=== PATIENT | female | born 1965 | race Hispanic/Latino ===

== ENCOUNTER → 2017-08-04 | Outpatient (CLI) | payer OTHER ==
--- NOTE | 2017-08-05 13:52 | MAM ---
EXAM DESCRIPTION: 3D Screening BILATERAL CLINICAL HISTORY: 51 yearsFemaleSCREENING . No complaints. No family history of breast cancer. Postmenopausal five months. No HRT. COMPARISON: 2-D digital screening bilateral study 04/16/2016. No prior reports available. TECHNIQUE: Bilateral CC and MLO projection full-field images, 3-D tomosynthesis digital mammographic technique. Also bilateral synthesized CC/ MLO full-field images. CAD not utilized. FINDINGS: The breast parenchymal density pattern is: Heterogeneously dense breast tissue, which may obscure small masses. No skin thickening or nipple retraction bilateral solitary microcalcifications and coarse calcification in the left breast. No focal, stellate mass or density, focal asymmetry , and no suspicious microcalcifications bilaterally. Stable mammograms compared to prior study, taking into account differences in mammographic technique IMPRESSION: BI-RADS CATEGORY: 2 - BENIGN FINDINGS. FOLLOW UP: Routine digital bilateral screening, one year interval from August 2017. Written communication explaining the IMPRESSION and follow-up, will be mailed to the patient and referring health care provider. According to the [employer], yearly mammograms are recommended starting at age 40 and continuing as long as a woman is in good health. Any breast change noted on a breast self-exam should be reported promptly to the patient's healthcare provider. Breast MRI is recommended for women with an approximately 20-25% or greater lifetime risk of breast cancer, including women with a strong family history of breast or ovarian cancer and women who have been treated for Hodgkin's disease. A negative mammographic report should not delay tissue diagnosis in patients with significant clinical history or physical findings. Extremely dense breast tissue limits the sensitivity of digital mammography. Electronically signed by: Ish Landon MD 08/05/2017 1:51 PM CDT
== END | disposition home or self-care (01) ==
LOC: MAMMO 17:08
PROVIDERS: ATTEND Family Medicine
DX: Z12.31 Encounter for screening mammogram for malignant neoplasm of breast (principal)
CPT/HCPCS: 77063; G0202

== ENCOUNTER → 2017-09-21 | Outpatient (CLI) | payer OTHER | END | disposition home or self-care (01) | LOC: GMAB 16:45 | PROVIDERS: ATTEND Family Medicine | DX: M25.551 Pain in right hip (principal) ==

== ENCOUNTER 2017-12-11 16:11 | Emergency (ER) | payer OTHER ==
[2017-12-11 16:39] VITALS: BP 119/78; TEMP 98.3; O2SAT 100
--- NOTE | 2017-12-11 17:02 | ED.PDOC ---
History of Present Illness - General Chief Complaint: Lower Extremity Injury Stated Complaint: knee pain Time Seen by Provider: 12/11/17 16:59 Source: patient, RN notes reviewed - History of Present Illness Occurred: last week Pain - Lower Extremity: moderate: Left Knee - fell from standing position on 4 days ago at work Method of Injury: fell Improving Factors: nothing Worsening Factors: movement Allergies/Adverse Reactions: Allergies NO KNOWN ALLERGY Allergy (Verified 11/15/15 16:44) Home Medications: Ambulatory Orders Aspirin [Aspirin 81] 81 mg PO DAILY #0 09/06/13 Clopidogrel Bisulfate [Plavix] 75 mg PO DAILY #0 09/06/13 Propranolol HCl 10 mg PO HS #0 09/06/13 Simvastatin [Zocor] 20 mg PO HS #0 09/06/13 Review of Systems - Review of Systems Constitutional: States: no symptoms reported EENTM: States: no symptoms reported Respiratory: States: no symptoms reported Cardiology: States: no symptoms reported Gastrointestinal/Abdominal: States: no symptoms reported Genitourinary: States: no symptoms reported Musculoskeletal: States: see HPI Skin: States: no symptoms reported Endocrine: States: no symptoms reported Hematologic/Lymphatic: States: no symptoms reported Past Medical History (General) - Patient Medical History Hx Seizures: No Hx Stroke: Yes - TIA's Hx Asthma: No Hx of COPD: No Hx Cardiac Disorders: Yes - hypercholesterolemia Hx Congestive Heart Failure: No Hx Pacemaker: No Hx Hypertension: Yes Hx Diabetes: No Hx MRSA: No - Vaccination History Hx Influenza Vaccination: Yes - Social History Hx Tobacco Use: No Hx Alcohol Use: No Hx Substance Use: No Hx Physical Abuse: No Hx Emotional Abuse: No - Female History Patient is a Female of Child Bearing Age (10 -59 yrs old): Yes Hx Last Menstrual Period: 08/21/12 Family Medical History - Family History Father Living Status: Hx Family Diabetes: Yes Physical Exam - Physical Exam General Appearance: Alert Eyes, Ears, Nose, Throat: PERRL/EOMI, normal ENT inspection, TMs normal, scleral icterus (R) Neck: non-tender, full range of motion, supple Cardiovascular/Respiratory: regular rate, rhythm, no M/R/G, normal peripheral pulses Gastrointestinal/Abdominal: non-tender, no organomegaly, no hernia Back: normal inspection, no CVA tenderness, no vertebral tenderness Thigh/Hip: normal inspection, non-tender, no evidence of injury Knee: normal ROM - LEFT KNEE MILD SWELLING NOTED NO DEFORMITY NO DISCOLORATION NO JOINT INSTABILITY, pain, swelling Departure - Departure Clinical Impression: Contusion Time of Disposition: 17:06 Disposition: Discharge to Home or Self Care Condition: Good Departure Forms: ED Discharge - Pt. Copy, Patient Portal Self Enrollment Diet: resume usual diet Referrals: Ray Matos MD [Primary Care Provider] - 1-2 Weeks Home Medications: Ambulatory Orders Aspirin [Aspirin 81] 81 mg PO DAILY #0 09/06/13 Clopidogrel Bisulfate [Plavix] 75 mg PO DAILY #0 09/06/13 Propranolol HCl 10 mg PO HS #0 09/06/13 Simvastatin [Zocor] 20 mg PO HS #0 09/06/13
--- NOTE | 2017-12-11 17:16 | RAD ---
EXAM DESCRIPTION: Knee, left 2 or More Views CLINICAL HISTORY: 51 years Female pain after fall COMPARISON: None. TECHNIQUE: Three views of the left knee. FINDINGS: No acute fractures or dislocations are identified. No osseous destructive lesions. IMPRESSION: No acute fracture is identified. Electronically signed by: Santi Nino MD 12/11/2017 5:15 PM [facility]
== END 2017-12-11 17:11 | disposition home or self-care (01) ==
LOC: ER 16:11
DX: S80.02XA Contusion of left knee, initial encounter (principal); E78.00 Pure hypercholesterolemia, unspecified; I10 Essential (primary) hypertension; Z86.73 Personal history of transient ischemic attack (TIA), and cerebral infarction without residual deficits; W19.XXXA Unspecified fall, initial encounter; Y92.89 Other specified places as the place of occurrence of the external cause; Y99.0 Civilian activity done for income or pay; Z79.82 Long term (current) use of aspirin; Z79.02 Long term (current) use of antithrombotics/antiplatelets

== ENCOUNTER → 2018-08-23 | Outpatient (CLI) | payer OTHER ==
--- NOTE | 2018-08-24 11:10 | MAM ---
EXAM DESCRIPTION: 3D Screening BILATERAL : Digital Mammography. CLINICAL HISTORY: 52 years Female SCREENING . No complaints. No personal or family history of breast cancer. Childbirth. Postmenopausal. No HRT. Prior benign right breast biopsy. Lifetime risk of developing breast cancer (Tyrer-Cuzick model)(%): Not calculated 8.7. COMPARISON: Bilateral screening digital breast tomosynthesis 08/04/2017. TECHNIQUE: Bilateral CC and MLO projection full-field images, Digital tomosynthesis mammographic technique. Bilateral digital 2-D full-field MLO images. CAD not utilized. FINDINGS: The breast parenchymal density pattern is: Heterogeneously dense breast tissue, which may obscure small masses. No skin thickening or nipple retraction. Solitary bilateral microcalcifications. No new focal, stellate mass or density, focal asymmetry , and no suspicious microcalcifications bilaterally. Stable mammograms compared to prior study. IMPRESSION: Benign exam. BIRAD CATEGORY: 2 BENIGN FINDINGS. RECOMMENDATIONS: FOLLOW UP: Routine digital bilateral screening, one year interval from August 2018. Written communication explaining the IMPRESSION and follow-up, will be mailed to the patient and referring health care provider. According to the [employer], yearly mammograms are recommended starting at age 40 and continuing as long as a woman is in good health. Any breast change noted on a breast self-exam should be reported promptly to the patient's healthcare provider. Breast MRI is recommended for women with an approximately 20-25% or greater lifetime risk of breast cancer, including women with a strong family history of breast or ovarian cancer and women who have been treated for Hodgkin's disease. A negative mammographic report should not delay tissue diagnosis in patients with significant clinical history or physical findings. Extremely dense breast tissue limits the sensitivity of digital mammography. Electronically signed by: Ish Landon MD 08/24/2018 11:09 AM CDT
== END ==
LOC: MAMMO 13:00
PROVIDERS: ATTEND Family Medicine
DX: Z12.31 Encounter for screening mammogram for malignant neoplasm of breast (principal)

== ENCOUNTER → 2018-09-13 | Outpatient (CLI) | payer OTHER ==
--- NOTE | 2018-09-14 08:46 | US ---
THYROID ULTRASOUND CLINICAL INFORMATION: Thyroid nodule TECHNIQUE: Sonogram of the thyroid gland was performed. COMPARISON: None FINDINGS: Thyroid size: Right thyroid lobe measures 4.4 x 1.5 x 1.7 cm. The left thyroid lobe measures 4.5 x 1.7 x 1.8 cm. Thyroid isthmus measures 5 mm in thickness. Texture: Coarse texture with hypoechoic thyroid parenchyma suggesting chronic Cameron's thyroiditis. Estimated total number of nodules >/=1 cm: 0 Right No nodule is identified in the right thyroid lobe. Coarse texture is seen suggesting chronic autoimmune disease (chronic stage of Cameron's thyroiditis). Left A small nodule is seen in the central left thyroid lobe which is hypoechoic and measures 5 mm in diameter. Low level internal echoes are present consistent with hypoechoic solid lesion or debris-filled cyst. Posterior back wall is fairly sharply defined. Increased through-transmission is not evident however. No internal microcalcifications. At this small size, follow-up is not recommended. IMPRESSION: Coarse texture of the thyroid gland with findings suggesting Cameron's thyroiditis. Small 5 mm lesion in the left thyroid lobe appears benign. Electronically signed by: Gallito Verduzco MD 09/14/2018 8:44 AM [employer]
== END ==
LOC: US 15:13
PROVIDERS: ATTEND Family Medicine
DX: E04.1 Nontoxic single thyroid nodule (principal)

== ENCOUNTER → 2018-11-22 | Outpatient (CLI) | payer OTHER | LOC: GMAE 10:51 | PROVIDERS: ATTEND Family Medicine | DX: R94.6 Abnormal results of thyroid function studies (principal) ==

== ENCOUNTER 2019-08-23 15:58 | Emergency (ER) | payer OTHER ==
[2019-08-23 16:15] VITALS: BP 161/76
--- NOTE | 2019-08-23 16:17 | ED.PDOC ---
History of Present Illness - General Chief Complaint: Upper Extremity Injury Stated Complaint: RH injury Time Seen by Provider: 08/23/19 16:12 - History of Present Illness Initial Comments: 53 yo F PMH HTN HL Stroke on blood thinner (does not know name) pt. of Dr. Hyatt presents to ED daughter at bedside c/o crush injury to right hand 40 minutes ago. Pt. 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 No change in diet rest bowel or bladder. Denies drinking or smoking admits FH HTN DM. No other c/o today. Allergies/Adverse Reactions: Allergies NO KNOWN ALLERGY Allergy (Verified 11/15/15 16:44) Home Medications: Ambulatory Orders Aspirin [Aspirin 81] 81 mg PO DAILY #0 09/06/13 Clopidogrel Bisulfate [Plavix] 75 mg PO DAILY #0 09/06/13 Propranolol HCl 10 mg PO HS #0 09/06/13 Simvastatin [Zocor] 20 mg PO HS #0 09/06/13 Acetaminophen [Tylenol] 650 mg PO Q6H PRN #30 tab 08/23/19 Review of Systems - Review of Systems Constitutional: States: see HPI EENTM: States: see HPI Respiratory: States: see HPI Cardiology: States: see HPI Gastrointestinal/Abdominal: States: see HPI Genitourinary: States: see HPI Musculoskeletal: States: see HPI Skin: States: see HPI Neurological: States: see HPI Endocrine: States: see HPI Hematologic/Lymphatic: States: see HPI All other Systems: Reviewed and Negative Past Medical History (General) - Patient Medical History Hx Seizures: No Hx Stroke: Yes - TIA's Hx Asthma: No Hx of COPD: No Hx Cardiac Disorders: Yes - hypercholesterolemia Hx Congestive Heart Failure: No Hx Pacemaker: No Hx Hypertension: Yes Hx Diabetes: No Hx MRSA: No - Vaccination History Hx Influenza Vaccination: Yes - Social History Hx Tobacco Use: No Hx Alcohol Use: No Hx Substance Use: No Hx Physical Abuse: No Hx Emotional Abuse: No - Female History Hx Last Menstrual Period: 08/21/12 Family Medical History - Family History Father Living Status: Hx Family Diabetes: Yes Physical Exam - Physical Exam General Appearance: No apparent distress Eyes, Ears, Nose, Throat Exam: normal ENT inspection Neck: full range of motion Cardiovascular/Respiratory: regular rate, rhythm Abdominal Exam: non-tender Back Exam: normal inspection Shoulder Exam: normal inspection Elbow/Forearm Exam: normal inspection Wrist Exam: normal inspection Hand Exam: swelling Neuro/Tendon: normal sensation, normal motor functions Mental Status: oriented x 3 Skin Exam: other - ecchymosis Progress - Progress Progress: 08/23/19 16:24 A/P-Hand Contusion, Abrasion-tylenol tetanus xr hand xr wrist both right if negative d/c tylenol fabiola tape follow up pcp 08/23/19 17:54 EXAM DESCRIPTION: Hand,Right 3 Views CLINICAL HISTORY: contusion COMPARISON: None Available. TECHNIQUE: AP, LATERAL, AND OBLIQUE FINDINGS: The visualized bones appear poorly mineralized. No acute fracture or dislocation. The soft tissues appear grossly unremarkable. Changes of amputation of the distal phalanx of the first digit. Mild degenerative changes are identified in the interphalangeal joints. IMPRESSION: Changes of amputation of the distal phalanx of the first digit. Mild degenerative changes are identified in the interphalangeal joints. Electronically signed by: Humberto Mead MD 08/23/2019 4:33 PM CDT EXAM DESCRIPTION: Wrist,Right 3 Views CLINICAL HISTORY: 53 years Female, contusion COMPARISON: None available. FINDINGS: The visualized bones are well- mineralized.No acute fracture or dislocation. The soft tissues appear grossly unremarkable. IMPRESSION: No acute radiographic abnormality is noted in the r ight wrist. Electronically signed by: Humberto Mead MD 08/23/2019 4:33 PM CDT Departure - Departure Clinical Impression: Hand pain, right Contusion of hand, right Qualifiers: Encounter type: initial encounter Qualified Code(s): S60.221A - Contusion of right hand, initial encounter Disposition: Discharge to Home or Self Care Condition: Good Departure Forms: ED Discharge - Pt. Copy, Patient Portal Self Enrollment Instructions: DI for Hand Injury Referrals: JACKY HYATT MD [Primary Care Provider] - 1-2 Weeks Prescriptions: Acetaminophen [Tylenol] 650 mg PO Q6H PRN #30 tab PRN Reason: Pain Home Medications: Ambulatory Orders Aspirin [Aspirin 81] 81 mg PO DAILY #0 09/06/13 Clopidogrel Bisulfate [Plavix] 75 mg PO DAILY #0 09/06/13 Propranolol HCl 10 mg PO HS #0 09/06/13 Simvastatin [Zocor] 20 mg PO HS #0 09/06/13 Acetaminophen [Tylenol] 650 mg PO Q6H PRN #30 tab 08/23/19
[2019-08-23] MEDS: ACETAMINOPHEN 500 MG TAB PO ONE (16:21)
[2019-08-23] MEDS: TETANUS,DIPHTHERIA,PERTUSSIS 1 EA SYG IM ONE (16:32)
--- NOTE | 2019-08-23 16:35 | RAD ---
EXAM DESCRIPTION: Hand,Right 3 Views CLINICAL HISTORY: contusion COMPARISON: None Available. TECHNIQUE: AP, LATERAL, AND OBLIQUE FINDINGS: The visualized bones appear poorly mineralized. No acute fracture or dislocation. The soft tissues appear grossly unremarkable. Changes of amputation of the distal phalanx of the first digit. Mild degenerative changes are identified in the interphalangeal joints. IMPRESSION: Changes of amputation of the distal phalanx of the first digit. Mild degenerative changes are identified in the interphalangeal joints. Electronically signed by: Humberto Mead MD 08/23/2019 4:33 PM CDT
--- NOTE | 2019-08-23 16:35 | RAD ---
EXAM DESCRIPTION: Wrist,Right 3 Views CLINICAL HISTORY: 53 years Female, contusion COMPARISON: None available. FINDINGS: The visualized bones are well-mineralized.No acute fracture or dislocation. The soft tissues appear grossly unremarkable. IMPRESSION: No acute radiographic abnormality is noted in the right wrist. Electronically signed by: Humberto Mead MD 08/23/2019 4:33 PM CDT
[2019-08-23] MEDS ORDERED: NEOMYCIN-BACITRACIN-POLYMYXIN 0.9 GM UD TOP ONE (18:06)
[2019-08-23 18:30] VITALS: TEMP 97.6; O2SAT 97
== END 2019-08-23 18:30 | disposition home or self-care (01) ==
LOC: ER 15:58
DX: S60.221A Contusion of right hand, initial encounter (principal); E78.00 Pure hypercholesterolemia, unspecified; I10 Essential (primary) hypertension; Z23 Encounter for immunization; Z89.011 Acquired absence of right thumb; Z85.828 Personal history of other malignant neoplasm of skin; Z86.73 Personal history of transient ischemic attack (TIA), and cerebral infarction without residual deficits; Z79.02 Long term (current) use of antithrombotics/antiplatelets; Z79.899 Other long term (current) drug therapy; W23.0XXA Caught, crushed, jammed, or pinched between moving objects, initial encounter; Y92.219 Unspecified school as the place of occurrence of the external cause

== ENCOUNTER → 2019-08-29 | Outpatient (CLI) | payer OTHER ==
--- NOTE | 2019-08-29 20:02 | MRI ---
EXAM DESCRIPTION: Lumbar Spine w/o Contrast : Magnetic Resonance Imaging. CLINICAL HISTORY: RADICULOPATHY LUMBAR REGION COMPARISON: None. TECHNIQUE: Multiplanar, multiple standard sequences, non contrast MRI, lumbar spine. FINDINGS: L5-S1: The disc is well visualized on axial T2 series 501, image 3. Hyperintense T2-weighted annular fissure in the posterior lateral right disc margin narrowing the base of the right foramen. No other disc bulging. No nerve impingement. Canal and foramina are patent. Posterior elements are unremarkable. L4-L5: Disc is normal with disc space. Posterior thickening of the flavum ligaments narrowing the transverse diameter of the canal. Bilateral foramina are patent. L3-L4: Disc desiccation and minimal disc space loss. No significant bulging. Thickening of the posterior ligaments and bony narrowing of the transverse diameter of the canal but no canal stenosis. Bilateral neural foramina are patent. L2-L3: disc with minimal desiccation minimal anterior bulging. Narrowing of the posterior transverse canal but no stenosis. Bilateral foramina are patent. L1-L2: Normal signal in the disc and disc space preserved. Posterior elements unremarkable. Canal and foramina are patent. Perineural cyst in the right foramen. T12-L1: Same as L1-L2. Conus terminates at the L1-L2 disc space. Minimal levoscoliosis. Paravertebral soft tissues unremarkable.. Distal cord normal signal and caliber. Normal marrow signal in the remaining vertebral bodies and the posterior elements. Vertebral bodies are not compressed at any level. IMPRESSION: 1. Narrowing of the interlaminar distance at multiple levels also with thickening of the posterior flavum ligaments. No canal stenosis. Some discs are desiccated with no significant bulging. No significant hypertrophic arthrosis. No neural foraminal stenosis. 2. Right posterior L5-S1 disc with annular fissure and minimal narrowing of the base of the right foramen but no stenosis. Electronically signed by: Ish Landon MD 08/29/2019 8:00 PM CDT
== END ==
LOC: MRI 10:50
PROVIDERS: ATTEND Psychiatry & Neurology Neurology
DX: M51.17 Intervertebral disc disorders with radiculopathy, lumbosacral region (principal); M51.16 Intervertebral disc disorders with radiculopathy, lumbar region

== ENCOUNTER → 2019-08-31 | Outpatient (CLI) | payer OTHER ==
--- NOTE | 2019-09-02 16:32 | MAM ---
EXAM DESCRIPTION: 3D Screening BILATERAL : Digital Mammography. CLINICAL HISTORY: 53 years Female ANNUAL SCREENING . No complaints. No personal or family history of breast cancer. Menarche age 14. Childbirth. Premenopausal. No HRT. Prior benign right breast biopsy.. Lifetime risk of developing breast cancer (Tyrer-Cuzick model)(%): 10.2. COMPARISON: Bilateral screening digital breast tomosynthesis 23 August 2018 and 04 August 2017.. No prior reports available. TECHNIQUE: Bilateral CC and MLO projection full-field images, digital tomosynthesis mammographic technique. Bilateral digital 2-D full-field MLO images. CAD not available for tomosynthesis or 2-D images. FINDINGS: The breast parenchymal density pattern is: Heterogeneously dense breast tissue, which may obscure small masses. No skin thickening or nipple retraction. Bilateral solitary microcalcifications. Coarse calcification mid upper left breast. No new focal, stellate mass or density, focal asymmetry , and no suspicious microcalcifications bilaterally. Stable mammograms compared to prior study. IMPRESSION: Benign exam. BIRAD CATEGORY: 2 BENIGN FINDINGS. RECOMMENDATIONS: FOLLOW UP: Routine digital bilateral mammographic screening, one year interval from August 2019. Written communication explaining the IMPRESSION and follow-up, will be mailed to the patient and referring health care provider. According to the [employer], yearly mammograms are recommended starting at age 40 and continuing as long as a woman is in good health. Any breast change noted on a breast self-exam should be reported promptly to the patient's healthcare provider. Breast MRI is recommended for women with an approximately 20-25% or greater lifetime risk of breast cancer, including women with a strong family history of breast or ovarian cancer and women who have been treated for Hodgkin's disease. A negative mammographic report should not delay tissue diagnosis in patients with significant clinical history or physical findings. Extremely dense breast tissue limits the sensitivity of digital mammography. Electronically signed by: Ish Landon MD 09/02/2019 4:30 PM CDT
== END ==
LOC: MAMMO 13:38
PROVIDERS: ATTEND Family Medicine
DX: Z12.31 Encounter for screening mammogram for malignant neoplasm of breast (principal)

== ENCOUNTER → 2019-09-20 | Outpatient (CLI) | payer OTHER ==
--- NOTE | 2019-09-21 14:28 | US ---
US HEAD NECK SOFT TISSUE CLINICAL STATEMENT: HYPOTHYROIDISM. COMPARISON: Ultrasound thyroid 13 September 2018. TECHNIQUE: Transcutaneous scanning, grayscale and Doppler modes. FINDINGS: Size right thyroid lobe: 4.1 x 1.7 x 1.5 cm Size left thyroid lobe: 4.0 x 1.6 x 2.0 cm Size isthmus: 0.76 cm Estimated total number of nodules greater than or equal to 1 cm: None. No nodules are seen bilaterally. No dominant solid masses or distinct cyst. No large calcifications. Bilateral lobes and the isthmus are heterogeneous. The nodule seen in the central left thyroid lobe on the prior study is no longer visualized. The soft tissue around the thyroid gland is unremarkable. IMPRESSION: 1. Normal size of the gland with bilateral heterogeneous echoes. No nodules or distinct cyst. Nodule seen on previous study no longer visualized. No Dominant solid masses, calcifications, or overlying skin changes. 2. Soft tissue around the thyroid gland is unremarkable. *ACR TI-RADS 2017 Recommendations for imaging follow-up of nodules: TR1: No FNA or follow up TR2: No FNA or follow up TR3: FNA if >/= 2.5 cm, follow up if 1.5 - 2.4 cm in 1, 3, and 5 years TR4: FNA if >/= 1.5 cm, follow up if 1.0 - 1.4 cm in 1, 2, 3, and 5 years TR5: FNA if >/= 1.0 cm, follow up if 0.5 - 0.9 cm every year for 5 years ACR TI-RADS recommends that no more than two nodules with the highest ACR TI-RADS total point should be biopsied and no more than four nodules should be followed. These recommendations do not apply to patients with increased risk for thyroid cancer or patients with symptomatic thyroid disease. Electronically signed by: Ish Landon MD 09/21/2019 2:26 PM [employer]
== END ==
LOC: RAD 14:52
PROVIDERS: ATTEND Family Medicine
DX: E03.9 Hypothyroidism, unspecified (principal)

== ENCOUNTER → 2020-03-12 | Outpatient (CLI) | payer OTHER ==
[~2020-03-12] MED LIST: ALBUTEROL SULFATE 2.5 MG/3 ML VIAL NEB ONE
== END ==
LOC: RESP 10:29
PROVIDERS: ATTEND Family Medicine
DX: R05 Cough (principal)
CPT/HCPCS: 94060; J7611

== ENCOUNTER → 2020-05-15 | Outpatient (CLI) | payer OTHER ==
--- NOTE | 2020-05-15 09:18 | MRI ---
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 FINDINGS: The midline structures are not displaced. Sulci are age appropriate. The lateral, third, and fourth ventricles are normal in size, shape, and anatomic positioning. Normal velasquez-white differentiation is seen. Normal flow voids are seen in the major intracranial vessels including the dural venous sinuses. Mild tortuosity of the vertebral basilar system. There is no evidence of mass, mass effect, hydrocephalus, or acute intracranial hemorrhage. No abnormal extra-axial fluid collections are seen. Tiny focus of increased FLAIR signal in the mid left frontal periventricular white matter. No diffusion restriction. This is of unknown etiology or clinical significance if any. No other areas of increased FLAIR/T2 signal are seen. No diffusion restriction. Gradient echo images show no abnormal signal. The pituitary is unremarkable. Visualized paranasal sinuses are unremarkable. The visualized orbits and mastoid air cells are unremarkable. IMPRESSION: Unremarkable noncontrast MRI of the head. No MRI evidence of acute intracranial ischemia, mass, or mass effect. Electronically signed by: Jonas Dillon MD 05/15/2020 9:16 AM CDT
== END ==
LOC: MRI 07:58
PROVIDERS: ATTEND Psychiatry & Neurology Neurology
DX: I66.02 Occlusion and stenosis of left middle cerebral artery (principal)

== ENCOUNTER → 2020-07-24 | Outpatient (CLI) | payer BC, OTHER | LOC: GMA CAST 19:08 → ER 19:08 → EDSTATUS 19:23 | PROVIDERS: ATTEND Family Medicine Sports Medicine | DX: R30.0 Dysuria (principal) ==

== ENCOUNTER 2020-09-14 11:32 | Emergency (ER) | payer BC, OTHER ==
--- NOTE | 2020-09-14 12:15 | ED.PDOC ---
History of Present Illness - General Chief Complaint: Respiratory Problem Stated Complaint: fever,BELLO,fatigue,congestion Time Seen by Provider: 09/14/20 12:07 Additional Information: Patient is a 54-year-old female who presents to the ED with her and son with chief complaint of cough. Patient was diagnosed with Covid 2 weeks ago with entire family (son, mom, dad) and patient is complaining of persistent cough and low-grade fever. Symptoms are now worsening, just persistent. Patient presents with family members to make sure that they are not coming down with pneumonia. Patient otherwise feels well and there are no other complaints at this time. - History of Present Illness Allergies/Adverse Reactions: Allergies NO KNOWN ALLERGY Allergy (Verified 11/15/15 16:44) Home Medications: Ambulatory Orders Clopidogrel Bisulfate [Plavix] 75 mg PO DAILY #0 09/06/13 Albuterol Inhaler [Ventolin Hfa Inhaler] 2 puff INH Q4H PRN #1 inh 09/14/20 Azithromycin [Zithromax Z-Nelson] 250 mg PO DAILY #6 tab 09/14/20 Celecoxib [Celebrex] 200 mg PO DAILY 09/14/20 Hydroxychloroquine Sulfate [Hydroxychloroquine Sulfat] 100 mg PO BID 09/14/20 Lisinopril 2.5 mg PO BEDTIME 09/14/20 Simvastatin [Zocor] 40 mg PO HS 09/14/20 Past Medical History (General) - Patient Medical History Hx Seizures: No Hx Stroke: Yes Hx Asthma: No Hx of COPD: No Hx Cardiac Disorders: Yes - hypercholesterolemia Hx Congestive Heart Failure: No Hx Pacemaker: No Hx Hypertension: Yes Hx Diabetes: No Hx MRSA: No Surgical History: no surgical history - Vaccination History Hx Tetanus, Diphtheria Vaccination: No Hx Influenza Vaccination: Yes Hx Pneumococcal Vaccination: Yes - Social History Hx Tobacco Use: No Hx Alcohol Use: No Hx Substance Use: No Hx Physical Abuse: No Hx Emotional Abuse: No - Female History Hx Last Menstrual Period: 08/21/12 Family Medical History - Family History Father Living Status: Hx Family Diabetes: Yes Progress - Progress Progress: 09/14/20 15:43 Patient reassessed and she is feeling well and is comfortable. She is breathing easily and she has ambulated in the ED without any obvious respiratory difficulties. Patient's oxygen saturation did drop to 90% however. Patient's labs are unremarkable and her CT shows Covid pneumonia but no evidence of pulmonary embolism. I discussed with patient inpatient care versus trial of outpatient management and given that [facility] and [facility] is extremely difficult due to [facility] capacity, patient requests outpatient treatment. We discussed specific return to ED symptoms to include worsening shortness of breath and difficulty breathing. Vital signs stable, patient is NAD and looks clinically well and I believe is safe for discharge with outpatient follow-up. Follow-up instructions, discharge instructions and return to ED precautions discussed with patient. Patient voices understanding and willingness to comply with instructions. All laboratory and radiographic results have been discussed with the patient, and all questions answered. Patient is happy with plan. Departure - Departure Clinical Impression: COVID-19 Pneumonia Qualifiers: Pneumonia type: due to unspecified organism Laterality: unspecified laterality Lung location: unspecified part of lung Qualified Code(s): J18.9 - Pneumonia, unspecified organism Time of Disposition: 15:47 Disposition: Discharge to Home or Self Care Condition: Fair Departure Forms: ED Discharge - Pt. Copy, Patient Portal Self Enrollment Instructions: Coronavirus Disease 2019 (COVID-19), Pneumonia in Adults Referrals: JACKY CARR MD [Primary Care Provider] - 1-5 Days Prescriptions: Albuterol Inhaler [Ventolin Hfa Inhaler] 2 puff INH Q4H PRN #1 inh PRN Reason: Shortness Of Breath/Wheezing Azithromycin [Zithromax Z-Nelson] 250 mg PO DAILY #6 tab Home Medications: Ambulatory Orders Clopidogrel Bisulfate [Plavix] 75 mg PO DAILY #0 09/06/13 Albuterol Inhaler [Ventolin Hfa Inhaler] 2 puff INH Q4H PRN #1 inh 09/14/20 Azithromycin [Zithromax Z-Nelson] 250 mg PO DAILY #6 tab 09/14/20 Celecoxib [Celebrex] 200 mg PO DAILY 09/14/20 Hydroxychloroquine Sulfate [Hydroxychloroquine Sulfat] 100 mg PO BID 09/14/20 Lisinopril 2.5 mg PO BEDTIME 09/14/20 Simvastatin [Zocor] 40 mg PO HS 09/14/20
--- NOTE | 2020-09-14 13:07 | RAD ---
EXAM DESCRIPTION: Chest,1 View CLINICAL HISTORY: 54 years Female, cough COMPARISON: None. TECHNIQUE: AP portable chest. FINDINGS: Heart size is large with prominent pulmonary vascularity. Infiltrate in the right infrahilar region and in the peripheral right upper lobe consistent with pneumonia. Minimal patchy infiltrates in the peripheral left midlung, in the left lung base and peripheral lingular regions. No pulmonary mass or worrisome nodule. No pneumothorax or pleural effusion. Bones are unremarkable. IMPRESSION: Bilateral pulmonary infiltrates consistent with pneumonia. Electronically signed by: Gallito Verduzco MD 09/14/2020 1:05 PM [facility]
[2020-09-14] MEDS ORDERED: cefTRIAXone SODIUM 1 GM in SODIUM CHL 0.9% 50ML MIN-BAG+ 50 ML IVPB ONE (13:12)
--- NOTE | 2020-09-14 14:37 | CT ---
EXAM DESCRIPTION: CTA Chest CLINICAL HISTORY: 54 years, Female, SOB, pos DD COMPARISON: July 30, 2010 TECHNIQUE: Rapid bolus administration of nonionicIV contrast was performed with thin-section axial scanning of the chest performed in a dynamic fashion. Reconstructed multiplanar and three dimensional MIP and/or VRT images were created on a separate dedicated workstation were reviewed along with the source axial images and stored in the patient's medical record. Stenoses were evaluated using the NASCET criteria. This exam was performed according to our departmental dose-optimization program, which includes automated exposure control, adjustment of the mA and/or kV according to patient size and/or use of iterative reconstruction technique. FINDINGS: Markedly abnormal lung santoro are present bilaterally without significant pleural effusions. Subpleural and pleural-based patchy groundglass opacity peripherally with more coalescent consolidating changes in each posterior lung base is present. Pattern is consistent with viral or Covid pneumonitis. Modest elevation of the right hemidiaphragm noted. Below the diaphragm no gross abnormality of the upper abdomen noted. Small retrocardiac hiatal hernia. Extensive granulomatous calcifications left hilum noted. Satisfactory pulmonary vascular opacification achieved with no evidence of large or central embolus. Breast for motion artifact in the lung bases limits evaluation of segmental branches but no evidence of main pulmonary artery lobar or proximal segmental branch occlusion evident. No filling defects noted. IMPRESSION: 1. Partly abnormal lung santoro with coalescent patchy posterior basilar changes with scattered groundglass opacity peripheral and subpleural throughout both lungs typical of a viral or Covid pneumonitis. 2. Negative CT pulmonary angiogram with no evidence of blowout large vessel occlusion or filling defect to the proximal segmental levels. 3. Granulomatous calcifications in the middle mediastinum subcarinal region and left hilum consistent with old granulomatous disease 4. Small retrocardiac hiatal hernia. Electronically signed by: Osvaldo Martinez MD 09/14/2020 2:35 PM [facility]
[2020-09-14 15:44] VITALS: BP 138/73
[2020-09-14 16:08] VITALS: TEMP 98.8; O2SAT 94
== END 2020-09-14 15:54 | disposition home or self-care (01) ==
LOC: ER 11:32
DX: U07.1 COVID-19 (principal); J12.89 Other viral pneumonia; E78.00 Pure hypercholesterolemia, unspecified; I10 Essential (primary) hypertension; Z86.73 Personal history of transient ischemic attack (TIA), and cerebral infarction without residual deficits; Z79.02 Long term (current) use of antithrombotics/antiplatelets; Z79.899 Other long term (current) drug therapy
CPT/HCPCS: 36415; 71045; 71275; 80053; 83605; 85025; 85379; 87040; J0696; J7050

== ENCOUNTER → 2020-10-31 | Outpatient (CLI) | payer BC | LOC: GMAE 17:00 | PROVIDERS: ATTEND Family Medicine | DX: E03.9 Hypothyroidism, unspecified (principal) ==